=== PATIENT | female | born 1955 | race Caucasian/White ===

== ENCOUNTER 2020-07-13 12:27 | Inpatient (IN) | payer MEDICARE, OTHER ==
[~2020-07-13] VITALS: Ht 157.5 cm; Wt 172.4 kg
[~2020-07-13 12:27] MED LIST: NORVASC 5 MG TAB5 MG PO; SYNTHROID200 MCG PO; VITAMIN D1000 UNIT PO
[2020-07-13 13:41] LABS: HEMOGLOBIN 13.6 gm/dl (12.3-15.3); RED BLOOD COUNT 5.19 M/UL (4.00-5.10); WHITE BLOOD COUNT 5.8 K/UL (4.5-11.0)
[2020-07-13 14:10] LABS: BUN/CREATININE RATIO 18 (0-10)
[2020-07-13] MEDS ORDERED: ZESTRIL20 MG PO (16:02)
[2020-07-13] MEDS ORDERED: LEVOTHYROXINE200 MC1 PO (19:31)
[2020-07-13] MEDS ORDERED: LISINOPRIL20 MG PO (19:32)
[2020-07-13] MEDS ORDERED: AMLODIPINE BESYL5 MG PO (19:32)
[2020-07-13 19:45] LABS: HEMOGLOBIN 13.3 gm/dl (12.3-15.3); RED BLOOD COUNT 5.05 M/UL (4.00-5.10); WHITE BLOOD COUNT 5.8 K/UL (4.5-11.0)
[2020-07-16 08:38] LABS: HEMOGLOBIN 13.4 gm/dl (12.3-15.3); RED BLOOD COUNT 5.11 M/UL (4.00-5.10); WHITE BLOOD COUNT 7.2 K/UL (4.5-11.0)
[2020-07-17 08:28] LABS: HEMOGLOBIN 14.1 gm/dl (12.3-15.3); RED BLOOD COUNT 5.41 M/UL (4.00-5.10); WHITE BLOOD COUNT 7.1 K/UL (4.5-11.0)
[2020-07-18 08:34] LABS: HEMOGLOBIN 13.9 gm/dl (12.3-15.3); RED BLOOD COUNT 5.27 M/UL (4.00-5.10)
[2020-07-18] MEDS ORDERED: LEVOFLOXACIN500 MG PO (12:13)
[2020-07-18] MEDS ORDERED: DECADRON4 MG PO (12:13)
== END 2020-07-18 14:13 | disposition home or self-care (01) | DRG 177 ==
LOC: ER1 12:27 → MED SURG 4 15:25 → CDU 15:25 → MED SURG 4 18:32
PROVIDERS: Physician Assistant; ADMIT Internal Medicine
PROC: 8E0ZXY6 Isolation (ICD-10-PCS; principal; 2020-07-13)
PROC: XW033E5 Introduction of Remdesivir Anti-infective into Peripheral Vein, Percutaneous Approach, New Technology Group 5 (ICD-10-PCS; 2020-07-13)
PROC: XW13325 Transfusion of Convalescent Plasma (Nonautologous) into Peripheral Vein, Percutaneous Approach, New Technology Group 5 (ICD-10-PCS; 2020-07-14)
DX: U07.1 COVID-19 (principal); J12.82 Pneumonia due to coronavirus disease 2019; J96.01 Acute respiratory failure with hypoxia; J84.9 Interstitial pulmonary disease, unspecified; Z68.44 Body mass index [BMI] 60.0-69.9, adult; N17.9 Acute kidney failure, unspecified; E66.01 Morbid (severe) obesity due to excess calories; R73.03 Prediabetes; I25.10 Atherosclerotic heart disease of native coronary artery without angina pectoris; E03.9 Hypothyroidism, unspecified; N18.9 Chronic kidney disease, unspecified; E86.0 Dehydration; I12.9 Hypertensive chronic kidney disease with stage 1 through stage 4 chronic kidney disease, or unspecified chronic kidney disease; R53.1 Weakness; M17.0 Bilateral primary osteoarthritis of knee; Z90.710 Acquired absence of both cervix and uterus; Z88.5 Allergy status to narcotic agent; Z95.5 Presence of coronary angioplasty implant and graft; Z80.1 Family history of malignant neoplasm of trachea, bronchus and lung; Z80.42 Family history of malignant neoplasm of prostate; Z80.0 Family history of malignant neoplasm of digestive organs; Z80.9 Family history of malignant neoplasm, unspecified; Z82.49 Family history of ischemic heart disease and other diseases of the circulatory system; Z79.890 Hormone replacement therapy; Z79.899 Other long term (current) drug therapy
CPT/HCPCS: 36415; 36600; 71045; 80053; 81001; 82550; 82553; 82803; 83605; 83874; 83880; 84484; 85025; 85027; 85379; 85610; 86140; 86900; 86901; 86927; 87040; 90471; 93005; 96365; 96366; 96375; 99285; J0456; J1100; J1650; J1956; J7030; J7050; U0002

== ENCOUNTER → 2020-10-09 | Outpatient (CLI) | payer MEDICARE, OTHER ==
[~2020-10-09] MED LIST changes: +AMLODIPINE BESYL5 MG PO; +DECADRON4 MG PO; +LEVOFLOXACIN500 MG PO; +LEVOTHYROXINE200 MC1 PO; +LISINOPRIL20 MG PO; +ZESTRIL20 MG PO
== END ==
LOC: KOH-I 13:07
DX: R06.00 Dyspnea, unspecified (principal)
CPT/HCPCS: 71046

== ENCOUNTER → 2020-10-19 | Outpatient (CLI) | payer MEDICARE, OTHER | LOC: EXRD 14:07 | DX: R60.0 Localized edema (principal) | CPT/HCPCS: 93925; 93970 ==